=== PATIENT | male | born 1980 | race African-American/Black ===

== ENCOUNTER 2016-10-31 10:49 | Emergency (ER) | payer OTHER ==
[~2016-10-31] VITALS: Ht 193 cm; Wt 93.9 kg
[~2016-10-31 10:49] MED LIST: HYDR10TA16 PO; NAPR550 PO
[2016-10-31 10:55] VITALS: BP 154/90; TEMP 98.3; O2SAT 98
--- NOTE | 2016-10-31 11:20 | PD ---
HPI Chief Complaint: Injury Time Seen by Provider: 11:12 Travel History International Travel<30 days: No Contact w/Intl Traveler<30days: No Traveled to known affect area: No History of Present Illness HPI 35-year-old male presents to the emergency room for evaluation of right shoulder pain, right wrist pain after injuring 2 days ago. Patient states while at work, he threw a very heavy bag of trash into the dumpster which caused his right shoulder started hurting. Pain is localized in the anterior humeral head without radiation. It is worsened with range of motion. He also reports right wrist pain for the same instance. The trash started to fall so he had to overcorrect and in doing so twisted his ankle. Denies significant ankle pain at this time; he has been ambulatory since onset of symptoms.. He has not taken anything for his symptoms. States he took a warm bath that not did not help. Patient states the pain wasn't bad at first but worsened over time. Denies paresthesias. Denies chronic medical conditions or daily medications. PFSH Past Medical History Medical History: Denies Significant Hx Diminished Hearing: No Tetanus Vaccination: > 5 Years Influenza Vaccination: No Past Surgical History Surgical History: No Previous Surgery Social History Alcohol Use: No Tobacco Use: No (quit 2015) Substance Use: No Allergies-Medications (Allergen,Severity, Reaction): Coded Allergies: No Known Allergies (Verified , 10/31/16) Reported Meds & Prescriptions Reported Meds & Active Scripts Active No Active Prescriptions or Reported Medications Review of Systems Except as stated in HPI: all other systems reviewed are Neg Physical Exam Narrative GENERAL: Well-developed, well-nourished male in no acute distress. Afebrile. Ambulatory. SKIN: Focused skin assessment warm/dry. HEAD: Atraumatic. Normocephalic. EYES: Pupils equal and round. No scleral icterus. No injection or drainage. NECK: Trachea midline. No JVD. CARDIOVASCULAR: Regular rate and rhythm. No murmur appreciated. RESPIRATORY: No accessory muscle use. Clear to auscultation. Breath sounds equal bilaterally. MUSCULOSKELETAL: No obvious deformities. No clubbing. No cyanosis. No edema. Limited active range of motion secondary to pain. Pain is slightly decreased passive range of motion. 2+ radial pulse. Radial, ulnar, median nerves intact. Data Data Last Documented VS Vital Signs Date Time Temp Pulse Resp B/P Pulse Ox O2 Delivery O2 Flow Rate FiO2 10/31/16 10:55 98.3 78 16 154/90 98 MDM Medical Decision Making Medical Screen Exam Complete: Yes Emergency Medical Condition: Yes Medical Record Reviewed: Yes Differential Diagnosis Strain versus sprain versus fracture unlikely Narrative Course 35-year-old male presents to the emergency room for evaluation of right shoulder pain for the past 2 days. Patient states his shoulder started hurting after he threw a heavy trash bag overhand into the dumpster. Pain is localized to the anterior humeral head without radiation. It is tender to palpation in that area. There is pain with active and not so much with passive range of motion. Right upper extremity is neurovascularly intact with 2+ radial pulse. Radial, ulnar, and median nerves intact. Given mechanism of injury, fracture is unlikely. This is more likely rotator cuff injury/strain. Patient will be given muscle relaxers and NSAIDs. Told to follow up with a primary care physician/Worker's Comp. physician or return for worsening symptoms. He understands and agrees to plan. Diagnosis Primary Impression: Right shoulder strain Qualified Code: S46.911A - Right shoulder strain, initial encounter Referrals: Primary Care Physician Patient Instructions: General Instructions, Rotator Cuff Injury (ED), Shoulder Pain (ED) Additional Instructions: Rest and drink plenty of fluids. Take Robaxin as directed, as needed for pain. Take ibuprofen with food as directed, as needed for pain. Apply ice to the affected area for 20 minutes at a time, as needed for pain and swelling. Follow-up with a primary care physician. Return to the emergency room for worsening symptoms. Scripts No Active Prescriptions or Reported Meds Disposition: 01 DISCHARGE HOME Condition: Stable Leela Garcia Oct 31, 2016 11:20
[2016-10-31] MEDS ORDERED: IBUP800T23 PO (11:21)
[2016-10-31] MEDS ORDERED: ROBA750T PO (11:21)
== END 2016-10-31 11:28 | disposition home or self-care (01) ==
LOC: PHEFT 10:49
DX: S46.911A Strain of unspecified muscle, fascia and tendon at shoulder and upper arm level, right arm, initial encounter (principal); M25.531 Pain in right wrist; Z79.891 Long term (current) use of opiate analgesic; X58.XXXA Exposure to other specified factors, initial encounter; Y93.H9 Activity, other involving exterior property and land maintenance, building and construction; Y92.9 Unspecified place or not applicable; Y99.0 Civilian activity done for income or pay
CPT/HCPCS: 99283